=== PATIENT | female | born 1985 | race Caucasian/White ===

== ENCOUNTER 2019-04-14 07:46 | Observation (INO) | payer OTHER, SELFPAY ==
[2019-04-14] VITALS (9 sets, daily range): BP systolic 90–128; BP diastolic 50–85; PULSE 72–102; RESP 16–24; TEMP 36.7–36.9; O2SAT 97–100; BMI 19.8; BMI 19.4
--- NOTE | 2019-04-14 | PATH_ITS ---
[facility] Accession Number: [id number] . 01 Material submitted: . product of conception - PRODUCTS OF CONCEPTION . 01 Clinical history: . CRAMPING, BLEEDING OB PATIENT . 02 Diagnosis: Products of Conception: Products of conception identified. MRV/04/18/2019 . 02 Electronically signed: . Vonnie Cortes MD, Pathologist NPI- [id number] . 01 Gross description: . PRODUCTS OF CONCEPTION: Received in formalin are multiple fragments of hemorrhagic spongy tissue measuring 6.0 x 4.0 x 2.0 cm in aggregate. parts are not identified. Fishing Hand sections are submitted in 4 cassettes. /DM /DM . 02 Pathologist provided ICD-10: O02.1 . 02 CPT . 109008 Performed at: 01 [facility] [address] [id number] MD Abebe Macias MD Phone: [phone] Performed at: 02 [facility] [place] [address] [place], [place] [id number] MD Jolanta Valdez MD Phone: [phone]
--- NOTE | 2019-04-14 08:04 | ED_ITS ---
HPI - General Chief complaint: OB/Uterine Contractions Stated complaint: cramping, bleeding ob patient Time Seen by Provider: 04/14/19 07:54 Source: patient and family () Mode of arrival: ambulatory Limitations: no limitations History of Present Illness HPI Narrative: This is a 33-year-old female comes to the emergency department with complaint of miscarriage. Patient states that she had ultrasound last Thursday which showed she should be 7 weeks, she knew by dates she should be at 10-11 weeks. She was diagnosed with a miscarriage. She is actually set up for a D and C today with Dr. Booker. Patient not notice she started to have more cramping overnight and today is the bathroom if she passed quite a bit of blood some large clots and what she described as a ?contained jellyfish.? Patient states that she still pretty uncomfortable with some pelvic cramping although it is a little bit better after passing the blood and clots. Patient believes she is Rh positive. She has had 2 pregnancies total, prior was to term with no complications other than she was induced. She lives on [facility] and they do not have ultrasound capabilities today so she was referred to Ob here who is going to consult and treat her today at an appointment at 10:30 a.m. patient denies any other medical issues, she has had NEC L repair. She denies any tobacco, occasional alcohol none since she found she was . No illicit. She takes a daily no other medications. Hx Last Menstrual Period: 11 weeks Related Data Home Medications Medication Instructions Recorded Confirmed PNV cmb#95-ferrous fumarate-FA 1 tab PO DAILY 04/14/19 04/14/19 [] ibuprofen 800 mg PO Q8H PRN 04/14/19 04/14/19 Previous Rx's Medication Instructions Recorded oxycodone-acetaminophen [Percocet] 1 tab PO Q4-6H PRN #20 tab 04/14/19 Allergies Allergy/AdvReac Type Severity Reaction Status Date / Time No Known Drug Allergies Allergy Verified 04/14/19 10:56 Review of Systems Review of Systems ROS Unobtainable: All systems reviewed & are unremarkable except as noted in HPI and below Constitutional Reports fever(s) (low grade for a couple weeks.) Cardiovascular Denies chest pain and Denies dyspnea Respiratory Denies dyspnea Gastrointestinal Gastrointestinal: Denies diarrhea, Denies nausea and Denies vomiting Genitourinary Reports as per HPI, Reports abnormal vaginal bleeding, Denies hematuria, Denies urinary frequency, Denies dysuria, Reports pelvic pain, Denies flank pain, Denies urinary urgency and Denies vaginal discharge PMFSH - Past Medical History Medical history: Reports no medical history Surgical history: Reports other (ACL repair) Hx Last Menstrual Period: 11 weeks Exam Narrative Exam Narrative: GENERAL: Alert and oriented x three, well-nourished, well- appearing female in mild distress. Patient is more comfortable standing. HEENT: Head normocephalic, atraumatic, EOMI, pupils reactive, face symmetric, moist mucous membranes NECK: Supple, full range of motion CARDIOVASCULAR: Regular rate and rhythm without murmurs, rubs or gallops. RESPIRATORY: Breath sounds equal bilaterally, no wheezes rales or rhonchi. ABDOMEN: Soft, nontender. Normoactive bowel sounds all 4 quadrants. No guarding or rebound, rigidity, no mass : No CVA tenderness EXTREMITIES: Normal range of motion, no clubbing or edema. Neurovascularly intact NEUROLOGICAL: Cranial nerves II through XII grossly intact. Moving all extremities SKIN: Warm, dry, no petechiae, no rashes or lesions. Initial Vital Signs Initial Vital Signs: Vital Signs Temperature 98.5 F 04/14/19 08:08 Pulse Rate 102 H 04/14/19 08:08 Respiratory Rate 24 04/14/19 08:08 Blood Pressure 128/85 04/14/19 08:08 Pulse Oximetry 100 04/14/19 08:08 Course Orders Ordered: Discontinued Medications Ketorolac Tromethamine (Toradol) 30 mg IV NOW ONE Stop: 04/14/19 08:04 Last Admin: 04/14/19 08:30 Dose: 30 mg MDM - OB/Uterine Contractions Lab Data Attestation: I reviewed the patient's lab results. Result diagrams: 04/14/19 08:26 Lab Results 04/14/19 04/14/19 Range/Units 08:26 08:26 WBC 10.1 (4.5-11.0) X10^3/uL RBC 4.31 (4.0-5.2) X10^6/uL Hgb 13.6 (12.0-16.0) g/dL Hct 39.6 (36-46) % MCV 91.9 (80-100) fL MCH 31.5 (26-34) PG MCHC 34.3 (30-36) % RDW 13.4 (11.6-14.8) % Plt Count 279 (150-400) X10^3/uL Neut % (Auto) 77.5 H (50-75) % Lymph % (Auto) 13.4 L (25-40) % Sargent % (Auto) 7.5 (3-14) % Eos % (Auto) 1.4 L (2-4) % Baso % (Auto) 0.2 (0-2) % Neut # (Auto) 7800 H (6756-4535) /uL Lymph # (Auto) 1300 (3194-9078) /uL Sargent # (Auto) 700 (0-900) /uL Eos # (Auto) 100 (0-450) /uL Baso # (Auto) 0 (0-100) /uL Blood Type A Positive Imaging Data Pelvic ultrasound: Radiologist's impression: [place] [address] Ultrasound Report Signed Patient: Radha Terrazas OMR#: [id number] : 1985Acct:[id number] Age/Sex: FDate of Service: 04/14/19 Loc: [id number] Accession Number: [id number] Procedure: US OB <= 14 weeks fetus Ordering Provider: Nelly Lipscomb D.O. PROCEDURE: US OB <= 14 WEEKS FETUS INDICATIONS: CONCERN FOR MISCARRIAGE/RETAINED PRODUCTS OUTSIDE/PRIOR DATING DATA: Last menstrual period (LMP): 01/27/19. LMP-based estimated date of delivery (ANDREAS): 11/03/19. First dating scan (date and location): Not applicable. Estimated date of delivery (ANDREAS) from first dating scan: Not applicable. TECHNIQUE: Real-time scanning was performed of the fetus and maternal pelvic organs, with image documentation. Endovaginal scanning was also performed to better visualize the fetus and maternal ovaries. COMPARISON: None. FINDINGS: The patient reported that a prior ultrasound one week ago showed a 7 week gestational age fetus with no cardiac activity observed at time of scanning. No gestational sac or yolk sac was observed nor was any structures seen. At this time the endometrial canal and cervix appear occupied by heterogeneous material that is clearly not evidence of a living intrauterine gestation. The endometrial space measures up to 3.9 cm in transverse dimension and the material within the cervical canal measures up to 1.7 cm. Focal areas of blood flow consistent with retained products of conception are seen within this material, consistent with incomplete spontaneous . Ovaries appear normal, and there is a small amount of complex fluid at the left adnexa adjacent to the ovary, in this patient with probable reflux of hemorrhage from the endometrial space peripherally into that area. Embryo: Not seen Measurement variability in dating: +/- 4 weeks by LMP, +/- 7 days by mean sac diameter (use before 6 weeks gestation if crown-rump length not able to be measured), +/- 5 days by crown-rump length (up to 8 weeks 6 days gestation), +/- 7 days by crown-rump length (up to 13 weeks 6 days gestation). Maternal organs: Ovaries normal in appearance except for adjacent hemorrhagic free fluid in the peritoneal space adjacent to the left ovary.. Limited images through the kidneys demonstrate no hydronephrosis. IMPRESSION: Retained products of conception appear present within the endometrial space, with visualized internal blood flow. Active bleeding at time of scanning was observed. There is presumed reflux of hemorrhage into the adnexal area of the left ovary, which appears to have migrated through the fallopian tubes into that area. No adjacent area of suspected ectopic is found on the left. An identifiable fetus is not found. Dr. Booker of the [facility] staff was notified of these findings. Dictated by: Aydin Diaz M.D. on 04/14/2019 at 10:21 Approved by: Aydin Diaz M.D. on 04/14/2019 at 10:26 MDM Narrative Medical decision making narrative: Patient has some retained products of conception, her Rh is positive so she does not need RhoGAM. Hemoglobin is stable and she is feeling a bit more comfortable after Toradol Dr. Booker came to the department to see her she had an appointment at 10:34 a.m. D and C and plans to take her to OR for the same today. Patient was consented in the department by Dr. Booker. Discharge Plan Departure Patient Disposition: Admitted as Observation Clinical Impression: Hemorrhage due to retained products of conception Discharge Date/Time: 04/14/19 10:46 Interventions: ED Discharge Assessment Last Done: 04/14/19 10:41 Admit Date/Time: 04/14/19 10:22 Admit Provider: Roberta Booker
--- NOTE | 2019-04-14 08:09 | DI.US.S_ITS ---
PROCEDURE: US OB <= 14 WEEKS FETUS INDICATIONS: CONCERN FOR MISCARRIAGE/RETAINED PRODUCTS OUTSIDE/PRIOR DATING DATA: Last menstrual period (LMP): 01/27/19. LMP-based estimated date of delivery (ANDREAS): 11/03/19. First dating scan (date and location): Not applicable. Estimated date of delivery (ANDREAS) from first dating scan: Not applicable. TECHNIQUE: Real-time scanning was performed of the fetus and maternal pelvic organs, with image documentation. Endovaginal scanning was also performed to better visualize the fetus and maternal ovaries. COMPARISON: None. FINDINGS: The patient reported that a prior ultrasound one week ago showed a 7 week gestational age fetus with no cardiac activity observed at time of scanning. No gestational sac or yolk sac was observed nor was any structures seen. At this time the endometrial canal and cervix appear occupied by heterogeneous material that is clearly not evidence of a living intrauterine gestation. The endometrial space measures up to 3.9 cm in transverse dimension and the material within the cervical canal measures up to 1.7 cm. Focal areas of blood flow consistent with retained products of conception are seen within this material, consistent with incomplete spontaneous . Ovaries appear normal, and there is a small amount of complex fluid at the left adnexa adjacent to the ovary, in this patient with probable reflux of hemorrhage from the endometrial space peripherally into that area. Embryo: Not seen Measurement variability in dating: +/- 4 weeks by LMP, +/- 7 days by mean sac diameter (use before 6 weeks gestation if crown-rump length not able to be measured), +/- 5 days by crown-rump length (up to 8 weeks 6 days gestation), +/- 7 days by crown-rump length (up to 13 weeks 6 days gestation). Maternal organs: Ovaries normal in appearance except for adjacent hemorrhagic free fluid in the peritoneal space adjacent to the left ovary.. Limited images through the kidneys demonstrate no hydronephrosis. IMPRESSION: Retained products of conception appear present within the endometrial space, with visualized internal blood flow. Active bleeding at time of scanning was observed. There is presumed reflux of hemorrhage into the adnexal area of the left ovary, which appears to have migrated through the fallopian tubes into that area. No adjacent area of suspected ectopic is found on the left. An identifiable fetus is not found. Dr. Booker of the [facility] staff was notified of these findings. Dictated by: Aydin Diaz M.D. on 04/14/2019 at 10:21 Approved by: Aydin Diaz M.D. on 04/14/2019 at 10:26
[2019-04-14] MEDS: KETOROLAC 60 MG/2 ML VIAL 30 MG IV (08:30)
[2019-04-14 08:31] LABS: Add Manual Diff / Slide Review NO; Basophils Absolute Auto 0 /uL (0-100); Basophils Percent Auto 0.2 % (0-2); Eosinophils Absolute Auto 100 /uL (0-450); Eosinophils Percent Auto 1.4 % (2-4); Hematocrit 39.6 % (36-46); Hemoglobin 13.6 g/dL (12.0-16.0); Lymphocytes Absolute Auto 1300 /uL (1100-4500); Lymphocytes Percent Auto 13.4 % (25-40); Mean Corpuscular HGB Conc 34.3 % (30-36); Mean Corpuscular Hemoglobin 31.5 PG (26-34); Mean Corpuscular Volume 91.9 fL (80-100); Monocytes Absolute Auto 700 /uL (0-900); Monocytes Percent Auto 7.5 % (3-14); Neutrophils Absolute Auto 7800 /uL (1500-7000); Neutrophils Percent Auto 77.5 % (50-75); Platelet Count 279 X10^3/uL (150-400); Red Blood Cell Count 4.31 X10^6/uL (4.0-5.2); Red Cell Distribution Width 13.4 % (11.6-14.8); White Blood Cell Count 10.1 X10^3/uL (4.5-11.0)
[2019-04-14] MEDS: fentaNYL 100 MCG/2 ML INJ IV (11:14)
[2019-04-14] MEDS: LACTATED RINGERS 1,000 ML 42 ML IV (11:15)
[2019-04-14] MEDS: fentaNYL 100 MCG/2 ML INJ 50 MCG IV (11:24)
[2019-04-14] MEDS: CEFAZOLIN 2 GM/100 ML FROZ.PIGGY IV (11:45)
--- NOTE | 2019-04-14 11:48 | SUR.PREOP ---
pt taken into the OR at this time. Pt remained stable and alert after IV fentanyl given in pre op area. VSS and at bedside during pre op.
--- NOTE | 2019-04-14 11:55 | P.HP_ITS ---
History of Present Illness Date Patient Seen: 04/14/19 Time Patient Seen: 11:53 Chief complaint: cramping, bleeding ob patient Narrative: Patient is a 33-year-old 2 para 1 at 10 weeks gestation who has a missed at 7-8 weeks. She had suction D&C scheduled for today. On her way over on the [place] she started bleeding and cramping. She passed the fetus once she arrived at the hospital. An ultrasound showed that she still had retained products of conception. Patient History Social History Smoking Status: Never smoker Family & Social History Safety & Behavioral: Feels Safe in Current Yes Environment Been Physically Hurt or No Threatened By a Person Tobacco & Substance use: Smoking Status Never smoker alcohol intake frequency 0-2 drinks per day Substance Use Type does not use Meds Home Medications Medication Instructions Recorded Confirmed Type PNV cmb#95-ferrous fumarate-FA 1 tab PO DAILY 04/14/19 04/14/19 History [] ibuprofen 800 mg PO Q8H PRN 04/14/19 04/14/19 History Allergies Allergy/AdvReac Type Severity Reaction Status Date / Time No Known Drug Allergies Allergy Verified 04/14/19 10:56 Exam Vital Signs (past 8 hours): - 04/14/19 08:08 04/14/19 09:14 04/14/19 10:33 Temperature 98.5 F Pulse Rate 102 H 91 H 88 Respiratory Rate 24 18 18 Blood Pressure 128/85 Blood Pressure [Left Arm] 110/68 105/60 Pulse Oximetry 100 100 99 04/14/19 10:41 Temperature Pulse Rate 85 Respiratory Rate 20 Blood Pressure 105/60 Blood Pressure [Left Arm] Pulse Oximetry 99 Oxygen Delivery Method Room Air Narrative Exam Narrative: HEENT: No thyromegaly, no anterior cervical or supraclavicular lymphadenopathy. Lungs:Clear to auscultation bilaterally, no wheezes. Cardiovascular: Regular rate and rhythm, no murmurs, rubs, or gallops. Abdomen: No scars. No hepatosplenomegaly. No masses palpable. External genitalia: Normal Vagina: Normal Cervix: Normal Bimanual exam: 8 Week size uterus. Mobile. Rectal: No masses. Objective Labs Result Diagrams: 04/14/19 08:26 Labs: Laboratory Results - last 24 hr 04/14/19 04/14/19 08:26 08:26 WBC 10.1 RBC 4.31 Hgb 13.6 Hct 39.6 MCV 91.9 MCH 31.5 MCHC 34.3 RDW 13.4 Plt Count 279 Neut % (Auto) 77.5 H Lymph % (Auto) 13.4 L Drew % (Auto) 7.5 Eos % (Auto) 1.4 L Baso % (Auto) 0.2 Neut # (Auto) 7800 H Lymph # (Auto) 1300 Drew # (Auto) 700 Eos # (Auto) 100 Baso # (Auto) 0 Blood Type A Positive Assessment & Plan Assessment & Plan narrative: Assessment: 33-year-old 2 para 1 with retained products of conception Plan: Suction D&C The risks, benefits, and alternatives to the procedure were explained to the patient. The risks including bleeding, infection, and uterine perforation. She understands these risks and agrees to proceed. A full par Q was held and consent form was signed. Time Spent With Patient Time with patient: 15-24 minutes
--- NOTE | 2019-04-14 11:55 | PM.PREOP ---
Pre-operative Note Interval Note History & Physical reviewed/Exam performed by Physician: Yes Changes to H&P: No
--- NOTE | 2019-04-14 12:23 | SUR.OPER ---
Lithotomy on padded OR bed, head on pillow, arms secured on padded arm boards at <90 degrees abduction. Legs secured in padded yellow fins stirrups.
[2019-04-14] MEDS: OXYCODONE/ACETAMINOPHEN 5/325 TABLET 1 TAB PO (13:05)
--- NOTE | 2019-04-21 12:28 | P.OP_ITS ---
Operative Date/Time/Diagnoses Date of procedure: 04/14/19 Time of procedure: 12:45 Pre-op diagnosis: Retained products of conception Post-op diagnosis: same Procedure & Clinicians Procedure: Procedures Operation Date: 04/14/19 11:30 Actual Procedures Side Surgeon rigo Hernandez D&C Roberta Booker MD Indications: Retained products of conception Brisk vaginal bleeding Surgeon: Roberta Booker Anesthesia Type: General (LMA) Operative Notes Findings: 8 week size retroverted uterus Large amount of products of conception Closure Type: not applicable Specimen(s): uterine contents Applied: catheter (In and out) Estimated blood loss (mL): 150 Blood products transfused: none Procedure in detail: After informed consent was obtained, the patient was taken to the operating room where she was placed in the dorsal supine position. After adequate LMA general anesthesia was achieved, she was placed in the dorsal lithotomy position, and prepped and draped in the usual sterile fashion. A time-out was performed. A bivalve speculum was placed into the vagina and the anterior lip of the cervix grasped with a single-tooth tenaculum. There was a large amount of clot and tissue coming from the cervical os. The cervical os was dilated and the uterus was found to be retroverted. The # 8 curved plastic curette passed easily into the endometrial cavity. Several passes with suction revealed a large amount of products of conception. The suction curette was removed. Sharp curettage was performed yielding moderate amount of tissue. Several more passes with suction revealed blood only. The instruments were apple lloyd from the uterus. The single-tooth tenaculum was removed from the anterior lip of the cervix. The bivalve speculum was removed from the vagina. Sponge, lap, and instrument counts were correct x2. Patient tolerated the procedure well, was taken to PACU in stable condition. Complications: none Post-operative Condition: stable Disposition: PACU Plan for aftercare: Home after recovery
== END 2019-04-14 13:25 | disposition home or self-care (01) ==
LOC: ED 10:22 → AC 10:23
PROVIDERS: Admitting Provider Obstetrics & Gynecology; Emergency Provider Emergency Medicine; Visit Provider Obstetrics & Gynecology
PROC: (CPT 58120; principal; 2019-04-14 11:30)
DX: O02.1 Missed abortion (principal); Z3A.01 Less than 8 weeks gestation of pregnancy
CPT/HCPCS: 59820 ×2; 36591; 76801; 76817; 85025; 86900; 86901; 99282; G0378; J0690; J1100; J1885; J2405; J2704; J3010

== ENCOUNTER → 2019-06-24 13:11 | Outpatient (CLI) | payer OTHER, SELFPAY ==
--- NOTE | 2019-06-24 13:12 | DI.US.S_ITS ---
PROCEDURE: US PELVIC COMPLETE INDICATIONS: PELVIC PAIN, POST DNC TECHNIQUE: Real-time scanning was performed of the pelvic organs, with image documentation. Additional endovaginal scanning was necessary due to incomplete visualization of the adnexal and endometrial structures by transabdominal scanning. COMPARISON: OB ultrasound 04/14/2019. FINDINGS: Transabdominal scanning: Limited scanning through the kidneys shows no hydronephrosis. No pathologic free abdominal or pelvic fluid. Endovaginal scanning: Uterus: Uterus is normal in size at 7.9 x 4.5 x 3.9 cm. The endometrium measures 6.0 mm in combined thickness. Ovaries: Ovaries normal bilaterally measuring 3.7 x 2.1 x 2.5 cm on the right and 3.1 x 2.1 x 1.8 cm on the left. IMPRESSION: No source for pelvic pain identified. Dictated by: Carlos ARGUELLES Interpreted: Edy Lau MD on 06/24/2019 at 15:32 Approved by: Edy Lau M.D. on 06/24/2019 at 17:16
== END ==
PROVIDERS: Visit Provider Specialist
DX: R10.2 Pelvic and perineal pain (principal)
CPT/HCPCS: 76830; 76856

== ENCOUNTER → 2019-09-22 12:01 | Outpatient (CLI) | payer OTHER, SELFPAY ==
[2019-09-22 12:42] LABS: Add Manual Diff / Slide Review NO; Basophils Absolute Auto 0 /uL (0-100); Basophils Percent Auto 0.4 % (0-2); Eosinophils Absolute Auto 100 /uL (0-450); Eosinophils Percent Auto 1.2 % (2-4); Hematocrit 38.3 % (36-46); Lymphocytes Absolute Auto 1700 /uL (1100-4500); Lymphocytes Percent Auto 26.3 % (25-40); Mean Corpuscular HGB Conc 33.8 % (30-36); Mean Corpuscular Hemoglobin 31.1 PG (26-34); Mean Corpuscular Volume 91.9 fL (80-100); Monocytes Absolute Auto 500 /uL (0-900); Monocytes Percent Auto 8.4 % (3-14); Neutrophils Absolute Auto 4100 /uL (1500-7000); Neutrophils Percent Auto 63.7 % (50-75); Platelet Count 292 X10^3/uL (150-400); Red Blood Cell Count 4.16 X10^6/uL (4.0-5.2); Red Cell Distribution Width 13.2 % (11.6-14.8); White Blood Cell Count 6.5 X10^3/uL (4.5-11.0)
[2019-09-22 13:40] LABS: Appearance Urine UA CLEAR; Bilirubin Urine UA NEGATIVE (NEGATIVE); Color Urine UA YELLOW; Glucose Urine UA NEGATIVE (Negative); Ketones Urine UA NEGATIVE (NEGATIVE); Leukocyte Esterase Urine UA NEGATIVE (NEGATIVE); Nitrite Urine UA NEGATIVE (Negative); Occult Blood Urine UA NEGATIVE (Negative); Protein Urine UA NEGATIVE (Negative); Specific Gravity Urine UA <=1.005 (1.000-1.035); Urobilinogen Urine UA 0.2 E.U./dL (0.2)
[2019-09-22 16:34] LABS: Hepatitis B Surface Antigen NEGATIVE s/c (NEGATIVE); Rubella Antibody IgG 14.4 IU/mL (>15)
[2019-09-22 16:48] LABS: HIV 1 & 2 Ab/Ag 4th Gen Combo NEGATIVE (NEGATIVE); Hep C Virus Ab w/Reflex Quant NEGATIVE s/c (NEGATIVE)
[2019-09-23 21:02] LABS: RPR Screen Nonreactive (Nonreactive)
== END ==
PROVIDERS: PCP Family Medicine; Visit Provider Specialist
DX: Z34.81 Encounter for supervision of other normal pregnancy, first trimester (principal)
CPT/HCPCS: 36415; 80055; 81003; 86787; 86803; 86850; 86900; 86901; 87086; 87389

== ENCOUNTER → 2019-10-13 15:04 | Outpatient (ROUT) | payer OTHER, SELFPAY ==
[2019-10-13 16:40] LABS: Urine N gonorrhoeae NOT DETECTED
[2019-10-13 16:46] LABS: Urine Chlamydia NOT DETECTED
== END ==
PROVIDERS: PCP Family Medicine; Visit Provider Specialist
DX: Z34.81 Encounter for supervision of other normal pregnancy, first trimester (principal); Z3A.09 9 weeks gestation of pregnancy
CPT/HCPCS: 87491; 87591

== ENCOUNTER → 2019-10-21 09:50 | Outpatient (CLI) | payer OTHER, SELFPAY ==
[2019-10-21 10:12] LABS: Specimen Label NATERA KIT
[2019-10-21 11:01] LABS: Hemoglobin A1C% w Est Avg Glu 4.8 % (4.0-6.0)
[2019-10-21 11:33] LABS: Glucose 81 mg/dL (70-100)
== END ==
PROVIDERS: PCP Family Medicine; Referring Provider Specialist; Visit Provider Specialist
DX: Z34.81 Encounter for supervision of other normal pregnancy, first trimester (principal)
CPT/HCPCS: 36415; 82947; 83036

== ENCOUNTER → 2019-12-19 10:29 | Outpatient (CLI) | payer OTHER, SELFPAY ==
--- NOTE | 2019-12-19 10:35 | DI.US.S_ITS ---
PROCEDURE: OB >= 14 WEEKS FETUS INDICATIONS: ANATOMY SCAN OUTSIDE/PRIOR DATING DATA: Last menstrual period (LMP): Unknown. LMP-based estimated date of delivery (ANDREAS): Unknown. First dating scan (date and location): 10/13/19. Estimated date of delivery (ANDREAS) from first dating scan: 05/17/20. TECHNIQUE: Real-time scanning was performed of the fetus, with image documentation and biometric measurements. COMPARISON: [facility], OB <= 14 WEEKS FETUS, 10/13/2019, 13:52. [facility], OB <= 14 WEEKS FETUS, 09/22/2019, 11:31. [facility], PELVIC COMPLETE, 06/24/2019, 13:26. FINDINGS: General: A single living intrauterine gestation is present. Presentation: Transverse. Placenta: Placental position is posterior, low lying without gross previa Amniotic fluid index: 13.2 cm, normal range is 5-24 cm. heart rate: 147 beats per minute. Maternal cervical canal: 4.9 cm long. Normal lower limit is 2.5 cm. biometrics: Biparietal diameter: 4.1 cm 18 weeks 3 days Head circumference: 5.3 cm 18 weeks 2 days Abdominal circumference: 13.3 cm 18 weeks 6 days Femur length: 2.8 cm 18 weeks 3 days Estimated gestational age from initial scan: 18 weeks 4 days Composite gestational age from present scan: 18 weeks 3 days Estimated weight and percentile: 247 g 46 percentile Anatomic survey: Neuro: Ventricles are non-dilated at less than 10 mm. Cisterna magna is normal at 3-11 mm. Cerebellum is normal in size and morphology. Nuchal skin fold: Normal at less than 6 mm between 14-21 weeks gestational age. Face: Nose and lips, facial profile are not well seen. Spine: No evidence for spina bifida. Heart: 4-chambered heart and ventricular outflow tracts are suboptimally visualized. Diaphragm: Diaphragm is intact. Stomach: Left-sided stomach is present. Kidneys: No hydronephrosis. Normal is less than 5 mm in 2nd trimester, less than 7 mm in 3rd trimester. Cord: 3-vessel cord has orthotopic insertion. Bladder: Normal in size. Extremities: All 4 extremities identified. IMPRESSION: 1. Single live intrauterine with ultrasound gestational age of 18 weeks 3 days today corresponding to 18 weeks 4 days from initial ultrasound. Ultrasound EVD is unchanged at -. 2. No profile as well as heart and outflow tracts are suboptimally visualized. Recommend interval followup. Dictated by: Georgia Murray M.D. on 12/19/2019 at 16:21 Approved by: Georgia Murray M.D. on 12/19/2019 at 16:24
[2019-12-20 07:09] LABS: Alpha Fetoprotein 50.5 ng/mL (0.0-8.3)
[2019-12-29 15:17] LABS: AFP Value 50.1 ng/mL (.); Gest Age on Col Date 18.6 weeks (.); Gestational Age As provided (.); Insulin Dep Diabetes No (.); OSBR Risk 1IN 10000 (.); Test Results *Screen Negative* (.)
== END ==
PROVIDERS: PCP Family Medicine; Referring Provider Specialist; Visit Provider Specialist
DX: Z34.82 Encounter for supervision of other normal pregnancy, second trimester (principal); Z3A.18 18 weeks gestation of pregnancy
CPT/HCPCS: 36415; 76811; 82105

== ENCOUNTER → 2020-01-09 12:54 | Outpatient (CLI) | payer OTHER, SELFPAY ==
--- NOTE | 2020-01-09 12:56 | DI.US.S_ITS ---
PROCEDURE: US OB FOLLOW UP INDICATIONS: F/U PROFILE AND CARDIAC OUTFLOW TRACTS NOT PREVIOSLY SEEN OUTSIDE/PRIOR DATING DATA: Last menstrual period (LMP): Not available. LMP-based estimated date of delivery (ANDREAS): Not available. First dating scan (date and location): 10/13/19, by Dr. Jose. Estimated date of delivery (ANDREAS) from first dating scan: 12/16/19, by Dr. Jose. TECHNIQUE: Real-time scanning was performed of the fetus, with image documentation. Endovaginal scanning: Not needed. COMPARISON: None. FINDINGS: A single living intrauterine gestation is present. Presentation: Variable. Placenta: Placental position is posterior, without previa. Amniotic fluid index: 16.0 cm, normal range is 5-24 cm. heart rate: 139 beats per minute. Maternal cervical canal: 3.9 cm long. Normal lower limit is 2.5 cm. Estimated gestational age from initial scan: 21 weeks 4 days. IMPRESSION: Single living intrauterine gestation, appropriate interval growth appears to have occurred, placenta is not low-lying. facial profile and cardiac structures appear normal. Dictated by: Aydin Diaz M.D. on 01/09/2020 at 13:50 Approved by: Aydin Diaz M.D. on 01/09/2020 at 13:52
== END ==
PROVIDERS: PCP Family Medicine; Referring Provider Specialist; Visit Provider Specialist
DX: Z36.2 Encounter for other antenatal screening follow-up (principal); Z3A.21 21 weeks gestation of pregnancy
CPT/HCPCS: 76816

== ENCOUNTER → 2020-04-18 18:47 | Outpatient (CLI) | payer OTHER, SELFPAY ==
[2020-04-19 17:12] LABS: Strep Grp B PCR POS for Grp B Strep
== END ==
PROVIDERS: Family Provider Family Medicine; PCP Family Medicine; Visit Provider Specialist
DX: Z34.83 Encounter for supervision of other normal pregnancy, third trimester (principal); Z3A.35 35 weeks gestation of pregnancy
CPT/HCPCS: 87653

== ENCOUNTER 2020-05-12 19:17 | Inpatient (IN) | payer OTHER, SELFPAY ==
--- NOTE | 2020-05-12 19:53 | P.HPOB_ITS ---
OB HPI Date/Time Date of admission: 05/12/20 Date Patient Seen: 05/12/20 Time Patient Seen: 19:53 History of Present Condition Chief complaint: EVAL OF LABOR : 3 Para: 1 Estimated Date of Delivery: 05/17/20 Estimated Gestational Age (weeks): 39 Narrative: Radha Terrazas is a 34 year old female admitted for induction for distance from the hospital and gestational diabetes Indications Indication for induction OB: maternal distance History of Present care: good care, initiated at week # (9), number of visits (9) and pounds weight gain (16) Dating criteria: LMP confirmed by 1st trimester US Ultrasounds: normal mid trimester US Obstetrical complications: gestational diabetes (Diet-controlled) Medical complications: none Preadmission Labs Blood type: A (+) positive -: Antibody screen: negative, GBS status: positive, HBsAG: negative, HIV: negative and RPR/VDLR: negative -: Chlamydia screen: not detected and Gonorrhea screen: not detected -: Rubella: not immune and Varicella: immune HCAB: negative Cell-free DNA: Normal female Narrative: Patient just monitored her blood sugars throughout . She is on metformin Evaluation Evaluation Baseline heart rate: 135 Variability: Moderate (11-25) monitor accelerations: Present monitor decelerations: Absent Contraction Frequency (minutes): 0 Category of Tracing: Reactive Cervical dilation (cm): 0 Cervical effacement (%): 50 station: 0 PFSH Medical History (Updated 04/05/20 @ 10:13 by Angie Jose MD) Anxiety (Acute) Left breast lump (Acute ~2019) Migraines (Acute) UTI (urinary tract infection) (Acute) Surgical History (Updated 01/11/20 @ 14:41 by Nusrat Ontiveros) S/P anterior cruciate ligament surgery (Acute) S/P dilatation and curettage (Acute 04/14/19) [place] teeth extracted (Acute) Family History (System 01/11/20 @ 14:41 by Nusrat Ontiveros) Mother Asthma Father Hypertension Skin cancer screening Family/Other Thyroid condition Grandfather Hypertension H/O heart artery stent Grandmother Thyroid condition Grandfather Dementia Grandmother No problems noted. Family/Other Thyroid condition Social History (System 01/11/20 @ 14:41 by Nusrat M Maratea) marital status: household members: spouse and children education level: college occupational status: unemployed current occupational exposures/hazards: No special stacy needs: No Smoking Status: Never smoker second hand exposure: No substance use type: does not use Meds Home Medications and Allergies Home Medications Medication Instructions Recorded Confirmed Type pyridoxine (vitamin B6) 25 mg 25 mg PO DAILY 10/13/19 05/12/20 History tablet 1 tab PO DAILY 05/12/20 05/12/20 History Allergies Allergy/AdvReac Type Severity Reaction Status Date / Time No Known Drug Allergies Allergy Verified 05/12/20 22:59 Review of Systems Review of Systems Narrative: No headaches, scotomata, epigastric pain. Good movement. No rupture membranes. ROS: Yes All systems reviewed with the patient and are negative except as otherwise documented Exam Vital Signs (past 8 hours): BP 107/62, P 82, T97.8 Narrative Exam Narrative: HEENT exam within normal limits. Lungs are clear to auscultation percussion. Heart is regular rate and rhythm no S3-S4 or murmurs. Abdomen is gravid. Fetus is vertex. Extremities without edema and nontender. Objective Labs Result Diagrams: 05/12/20 23:45 Assessment and Plan Assessment and Plan Assessment and Plan narrative: 39 week with gestational diabetes on metformin for induction for distance from the hospital and gestational diabetes. Plan is Cytotec followed by Pitocin if necessary. Patient will have an epidural for pain control.
[2020-05-12] MEDS: miSOPROStoL 25 MCG TABLET VAG ×2 (20:36→23:45)
[2020-05-12 20:37] LABS: COVID19 -Nasal RAPID Negative (Negative)
[2020-05-12] MEDS: ZOLPIDEM 5 MG TABLET PO (23:45)
[2020-05-12 23:52] VITALS: BP 107/63
[2020-05-12 23:57] LABS: Add Manual Diff / Slide Review NO; Basophils Absolute Auto 0 /uL (0-100); Basophils Percent Auto 0.5 % (0-2); Eosinophils Absolute Auto 100 /uL (0-450); Eosinophils Percent Auto 0.7 % (2-4); Hematocrit 35.8 % (36-46); Hemoglobin 12.2 g/dL (12.0-16.0); Lymphocytes Absolute Auto 2000 /uL (1100-4500); Mean Corpuscular HGB Conc 33.9 % (30-36); Mean Corpuscular Hemoglobin 31.9 PG (26-34); Monocytes Absolute Auto 700 /uL (0-900); Monocytes Percent Auto 9.5 % (3-14); Neutrophils Absolute Auto 4400 /uL (1500-7000); Neutrophils Percent Auto 61.3 % (50-75); Platelet Count 216 X10^3/uL (150-400); Red Blood Cell Count 3.81 X10^6/uL (4.0-5.2); Red Cell Distribution Width 13.2 % (11.6-14.8); White Blood Cell Count 7.2 X10^3/uL (4.5-11.0)
[2020-05-13] MEDS: LACTATED RINGERS 1,000 ML 100 ML IV (08:10)
[2020-05-13] MEDS: OXYTOCIN PREMIX 30 UNIT/500 ML PLAST..BAG IV (09:23)
--- NOTE | 2020-05-13 12:03 | PM.OBPNLAB ---
Date/Time Date Patient Seen: 05/13/20 Time Patient Seen: 12:03 Pain Control Pain control: epidural (being placed now) Pelvic Exam Dilation (cm): 3 Effacement (%): 75 station: 0 Comments: AROMed for clear fluid Contractions Contractions on admission: regular Monitor mode: External Pitocin rate (mU/min): 7 Contraction frequency (min): 2 Contraction duration (min): 1 Contraction pattern: Regular Contraction intensity: Strong/Firm Status status: Category l Heart Rate Baseline: 120 Monitor Accelerations: Present Monitor Decelerations: Absent Monitor Variability: Moderate Assessment and Plan Assessment: induction ongoing Plan: continuous present management
[2020-05-13] MEDS: PENICILLIN G POTASSIUM 5,000,000 UNIT in DEXTROSE 5% IN WATER 250 ML IV (12:54)
[2020-05-13] MEDS: ONDANSETRON 4 MG/2 ML INJ IV (13:03)
--- NOTE | 2020-05-13 14:58 | PM.OBPRVD ---
Events: Gestational Diabetes Labor & Delivery Delivery date: 05/13/20 Cervical ripening method: per misoprostal protocol Induction method: per pitocin protocol Delivery monitor: external FHT and external uterine Route of delivery: L&D Laceration Description: None Estimated blood loss (mL): 400 Anesthesia type: Epidural Baby 1: gender: Female Presentation: vertex position: Right Occiput Anterior Placenta delivery description: Spontaneous cord vessel description: 3 Vessels score (1 min): 8 score (5 min): 9 Plan for aftercare: Routine care
[2020-05-13] MEDS: ACETAMINOPHEN 325 MG TABLET 650 MG PO (18:08)
[2020-05-14] MEDS: ACETAMINOPHEN 325 MG TABLET 650 MG PO ×2 (00:16→06:42)
[2020-05-14 06:29] LABS: Add Manual Diff / Slide Review NO; Basophils Absolute Auto 0 /uL (0-100); Basophils Percent Auto 0.3 % (0-2); Eosinophils Absolute Auto 100 /uL (0-450); Eosinophils Percent Auto 1.1 % (2-4); Hemoglobin 9.9 g/dL (12.0-16.0); Lymphocytes Absolute Auto 2300 /uL (1100-4500); Mean Corpuscular HGB Conc 34.2 % (30-36); Mean Corpuscular Hemoglobin 32.1 PG (26-34); Mean Corpuscular Volume 93.9 fL (80-100); Monocytes Absolute Auto 1000 /uL (0-900); Monocytes Percent Auto 10.8 % (3-14); Neutrophils Absolute Auto 5800 /uL (1500-7000); Neutrophils Percent Auto 62.8 % (50-75); Platelet Count 178 X10^3/uL (150-400); Red Blood Cell Count 3.09 X10^6/uL (4.0-5.2); Red Cell Distribution Width 13.5 % (11.6-14.8); White Blood Cell Count 9.2 X10^3/uL (4.5-11.0)
--- NOTE | 2020-05-14 08:11 | P.DS_ITS ---
Discharge Providers Provider Date of admission: 05/12/20 19:17 Discharge Date: 05/14/20 Primary care physician: Nelly Power MD Consults: 05/12/20 19:38 Consult to Anesthesiology Urgent Comment: Consulting Provider: Anesthesiologist Reason for consultation: Epidural Has provider been notified: No 05/14/20 14:56 Consult to Spray Gun Repairer Routine Comment: Discharge provider: Angie Jose MD Summary Hospital Course Date Patient Seen: 05/14/20 Time Patient Seen: 08:11 Procedures: Prostin followed by Pitocin induction for distance from the hospital and gestational diabetes. Epidural catheter, spontaneous vaginal delay Hospital Course: Patient was admitted for induction. She received an epidural catheter for pain control. She had a spontaneous vaginal delivery of a viable female weighing 6 lb 11 oz. Patient is without difficulty. She is urinating and ambulating well. No headaches, scotomata, epigastric pain. Peripartum Data Delivery Method: Natural Vaginal Laceration Description: None Procedures: Prostin followed by Pitocin induction, epidural catheter, spontaneous vaginal delivery complications: none [place] 1: Gender: Female Disposition of : home Discharge Diagnosis (1) Vaginal delivery: Status: Acute Status at Discharge Cognitive/behavioral status at discharge: oriented Functional status at discharge: independent ambulation Overall status at discharge: patient is progressing back to baseline Time Spent with Patient Time attestation: Total time spent providing and/or coordinating discharge services: Time spent: Less than 30 minutes Objective Labs Result Diagrams: 05/14/20 06:12 Labs: Laboratory Results - last 24 hr 05/14/20 06:12 WBC 9.2 RBC 3.09 L Hgb 9.9 L Hct 29.0 L MCV 93.9 MCH 32.1 MCHC 34.2 RDW 13.5 Plt Count 178 Neut % (Auto) 62.8 Lymph % (Auto) 25.0 [place] % (Auto) 10.8 Eos % (Auto) 1.1 L Baso % (Auto) 0.3 Neut # (Auto) 5800 Lymph # (Auto) 2300 [place] # (Auto) 1000 H Eos # (Auto) 100 Baso # (Auto) 0 Exam Vital Signs (past 8 hours): Blood pressure 112/65, pulse of 82, temperature 97.8? Narrative Exam Narrative: Abdomen is soft, nontender. Uterus is firm, at U, nontender. Perineum is intact. Mild lochia. Extremities without edema and nontender. Patient is Rh positive. She will be offered the rubella vaccine prior to discharge. She will be offered the Tdap prior to discharge. She had refused the Tdap prior. Discharge Plan Discharge Plan Patient Disposition: Home Discharge orders & Medications Prescriptions: New ibuprofen 600 mg Tablet 600 mg PO Q6HR PRN (Reason: Pain, Mild (1-3)) Qty: 20 RF: 0 Continued pyridoxine (vitamin B6) 25 mg tablet 25 mg PO DAILY RF: 0 1 tab tablet 1 tab PO DAILY RF: 0 Follow up/Referrals: Nelly Power MD [Primary Care Provider] - Angie Jose MD [Physician] - 06/20/20 (Follow up on [place] w/ Dr. Jose on @ 12:15pm) Diet/Activity/Treatments Diet: Regular Activity: Nothing in vagina for 6 weeks Skin/Wound/Dressing Care Report to your healthcare provider any signs of infection, such as:: chills, fever Visit Report/Discharge Packet Stand Alone Forms: Discharge: Care Discharge Data Primary Care Provider: Nelly Power Attending Provider: Angie Jose Admit Date/Time: 05/12/20 19:17
[2020-05-14 11:42] VITALS: BP 112/65; PULSE 82; RESP 15; TEMP 36.3
== END 2020-05-14 12:35 | disposition home or self-care (01) | DRG 807 ==
PROVIDERS: Admitting Provider Specialist; Family Provider Family Medicine; PCP Family Medicine; Referring Provider Specialist; Visit Provider Specialist
DX: O24.420 Gestational diabetes mellitus in childbirth, diet controlled (principal); Z37.0 Single live birth; Z3A.39 39 weeks gestation of pregnancy; O99.824 Streptococcus B carrier state complicating childbirth; Z11.59 Encounter for screening for other viral diseases
CPT/HCPCS: 01967; 36415; 59025; 59050; 59400; 85025; 86850; 86900; 86901; 87635; G0379; J2405; J2540; J2590

== ENCOUNTER → 2022-11-24 15:39 | Outpatient (CLI) | payer OTHER, SELFPAY ==
--- NOTE | 2022-11-24 15:41 | DI.US.S_ITS ---
PROCEDURE: US OB <= 14 WEEKS FETUS INDICATIONS: RIGHT PELVIC PAIN OUTSIDE/PRIOR DATING DATA: Last menstrual period (LMP): Unknown First dating scan (date and location): 11/24/2022. Estimated date of delivery (ANDREAS) from first dating scan: 07/07/2023. TECHNIQUE: Real-time scanning was performed of the fetus and maternal pelvic organs, with image documentation. Endovaginal scanning was also performed to better visualize the fetus and maternal ovaries. COMPARISON: None. FINDINGS: Heart rate is 173 beats per minute. [place]-rump length is 1.5 centimeters. Estimated ultrasound age is 7 weeks and 6 days. Right adnexal simple appearing cysts are present. Small amount of simple free fluid is also present. 1.6 x 0.7 x 0.5 centimeter perigestational hemorrhage is present. IMPRESSION: Living intrauterine at ultrasound age of 7 weeks and 6 days. Small perigestational bleed. We strive to produce accurate, complete, and clear reports of imaging services. To assist us in improving patient care, this report was composed using standard report templates and voice recognition software. Therefore, it may contain abnormal punctuation, insertions and/or omissions. Occasional wrong-word or sound-alike substitutions may occur. Though we review the report and make efforts to correct it, we do recommend that the report be read carefully in proper context to recognize any text inaccuracies. Dictated by: Eusebio Ware M.D. on 11/24/2022 at 16:14 Approved by: Eusebio Ware M.D. on 11/24/2022 at 16:16
== END ==
PROVIDERS: Family Provider Family Medicine; PCP Family Medicine; Referring Provider Obstetrics & Gynecology; Visit Provider Obstetrics & Gynecology
DX: O46.8X1 Other antepartum hemorrhage, first trimester; Z3A.01 Less than 8 weeks gestation of pregnancy
CPT/HCPCS: 76801; 76817; 93976

== ENCOUNTER 2022-12-17 06:53 | Day surgery (SDC) | payer OTHER, SELFPAY ==
[2022-12-17] VITALS (10 sets, daily range): BP systolic 74–119; BP diastolic 43–73; PULSE 71–101; RESP 12–20; TEMP 36.4–36.8; O2SAT 95–100; BMI 21.1
--- NOTE | 2022-12-17 | PATH_ITS ---
[facility] Accession Number: [id number] No. of containers..01 Tissue . 01 Material submitted: . endometrium - UTERINE CONTENTS . 01 Diagnosis: Uterine Contents: Products of conception identified. MRV 12/19/2022 1239 Local . 01 Electronically signed: . Vonnie Cortes MD, Pathologist NPI- [id number] . 01 Gross description: . The specimen is received in formalin labeled with the patient's name, , and uterine contents, and consists of multiple pugh variable spongy to membranous soft tissue fragments aggregating to 6.2 x 4.2 x 1.5 cm. No tissue is identified. Letterset Press Set Up Operator sections are submitted in cassettes A1-A2. ([id number]) /MRV 12/18/2022 1503 Local . 01 Pathologist provided ICD-10: O02.1 . 01 CPT . 162516 Specimen Comment: A courtesy copy of this report has been sent to [phone] Performed at: 01 [facility] [address] [place] [address], [place], [place] [id number] MD Abebe Macias MD Phone: [phone]
--- NOTE | 2022-12-17 05:41 | PM.GYNHP.1 ---
History of Present Illness History of Present Illness Reason for admission: missed Narrative: Radha Terrazas is a 37 year old female with a missed at 7+6 wks gestation here for a suction D&C [facility] Medical History (Updated 11/18/22 @ 11:09 by Ping Bernard, RN) Anxiety Bilateral breast cysts Gestational diabetes mellitus (GDM) affecting second Left breast lump (~2018) Migraines UTI (urinary tract infection) Vaginal delivery (~05/13/20) Surgical History (Updated 01/11/20 @ 14:41 by Nusrat Ontiveros) S/P anterior cruciate ligament surgery S/P dilatation and curettage (04/14/19) [place] teeth extracted Family History (Updated 11/18/22 @ 11:12 by Ping Bernard, HAZEL) Mother Asthma Father Hypertension Skin cancer screening Family/Other Thyroid condition Grandfather Hypertension H/O heart artery stent Grandmother Thyroid condition Grandfather Dementia Grandmother Dementia Family/Other Thyroid condition Son Anaphylaxis Social History (System 01/11/20 @ 14:41 by Nusrat Ontiveros) marital status: number of children: 2 household members: spouse and children lives independently: Yes caregiver/support person: Yes housing: house pets and animals: Yes (1 dog) education level: master's degree occupational status: unemployed current occupational exposures/hazards: No special stacy needs: No travel history: over 6 months ago seatbelt use: always helmet use: Yes water heater temp set < 120 deg: Yes working smoke detector in home: Yes fire extinguisher in home: Yes carbon monox detector in home: Yes firearms in home: Yes firearms unloaded and locked: Yes do you feel safe at home: Yes Smoking Status: Never smoker second hand exposure: No alcohol intake: former (very rarely when not ) substance use type: does not use during the past year weight has: remained stable well-balanced diet: daily or most days daily servings fruits/ve or more times/day caffeine: Yes (1 small cup coffee in AM) Type(s) of exercise: other (active, hiking) Meds Home Medications and Allergies Home Medications Medication Instructions Recorded Confirmed Type 1 tab PO DAILY 05/12/20 12/16/22 History docosahexaenoic acid 200 mg mg PO 11/18/22 12/16/22 History capsule ( DHA) Allergies Allergy/AdvReac Type Severity Reaction Status Date / Time No Known Drug Allergies Allergy Verified 12/16/22 14:26 Exam Narrative Exam Narrative: Generally: Somewhat teary, NAD Lungs: CTA bilat CV: RRR Abd: Soft, flat, nontender Bimanual exam: 8 wk size uterus Ext: No edema Assessment & Plan Assessment & Plan narrative: Assessment: 37 year old with a missed at 7 wks gestation Plan: Suction D&C The risks, benefits and alternatives to the procedure were explained to the patient. The risks including bleeding, infection, and uterine perforation. She understands these risks and agrees to proceed. A full PAR-Q was held and consent form was signed. Time Spent With Patient Time with patient: less than 30 minutes
[2022-12-17] MEDS: LACTATED RINGERS 1,000 ML 100 ML IV (07:30)
--- NOTE | 2022-12-17 07:50 | PM.PREOP ---
Pre-operative Note COVID-19 Criteria for continued procedure: Non-surgical alternatives not available or appropriate per current SOC Interval Note History & Physical reviewed/Exam performed by Physician: Yes Changes to H&P: No H&P completed within 30 days and has changed as indicated here:: 12/17/22
--- NOTE | 2022-12-17 08:23 | PM.GYNOP.1 ---
Operative Date/Time/Diagnoses Date of procedure: 12/17/22 Time of procedure: 08:24 Pre-op diagnosis: Missed at 7+6 weeks Post-op diagnosis: same Procedure & Clinicians Procedure: Procedures Operation Date: 12/17/22 07:45 Actual Procedure Side Surgeon p Suction Dilation and Curettage Roberta Booker MD Indications: Missed at 7+6 weeks gestation Surgeon: Roberta Booker Anesthesia Type: General (LMA) Operative Notes Findings: 8 week size anteverted uterus Large amount of POC Closure Type: not applicable Specimen(s): products of conception Applied: catheter (in/out) Estimated blood loss (mL): 100 Blood products transfused: none Procedure in detail: Informed consent was obtained. The patient was taken to the operating room and placed in the dorsal supine position. After LMA general anesthesia was obtained, she was placed in the dorsal lithotomy position and prepped and draped in the usual sterile fashion. A time out was performed. A bivalve speculum was placed into the vagina. A single-tooth tenaculum was placed on the anterior lip of the cervix. The cervical os was dilated to the #9 [place] dilator. The #8 curved plastic curette passed easily into the uterus. Several passes with suction revealed fluid and tissue. The placenta was stuck to the end of the catheter. This was removed. Several more passes with suction revealed tissue and blood. The last 2 passes with suction revealed blood only. The curette was removed from the uterus. The single-tooth tenaculum was removed from the anterior lip of the cervix. The bivalve speculum was removed from the vagina. Sponge, lap and instrument counts were correct x 2. The patient tolerated the procedure well and was taken to PACU in stable condition. Complications: none Post-operative Condition: stable Disposition: PACU Plan for aftercare: Home after recovery
[2022-12-17] MEDS: LACTATED RINGERS 1,000 ML 999 ML IV (09:05)
== END 2022-12-17 09:37 | disposition home or self-care (01) ==
PROVIDERS: Family Provider Family Medicine; PCP Family Medicine; Referring Provider Obstetrics & Gynecology; Visit Provider Obstetrics & Gynecology
PROC: (CPT 58120; principal; 2022-12-17 07:45)
DX: O02.1 Missed abortion (principal); Z3A.01 Less than 8 weeks gestation of pregnancy
CPT/HCPCS: 59820; J1100; J1885; J2250; J2405; J2704; J3010

== ENCOUNTER → 2023-09-22 15:44 | Outpatient (CLI) | payer OTHER, SELFPAY ==
[2023-09-22 16:22] LABS: Add Manual Diff / Slide Review NO; Basophils Absolute Auto 0 /uL (0-100); Basophils Percent Auto 0.3 % (0-2); Eosinophils Absolute Auto 100 /uL (0-450); Eosinophils Percent Auto 1.4 % (2-4); Hematocrit 36.6 % (36-46); Hemoglobin 12.4 g/dL (12.0-16.0); Lymphocytes Absolute Auto 1800 /uL (1100-4500); Lymphocytes Percent Auto 22.9 % (25-40); Mean Corpuscular HGB Conc 33.8 % (30-36); Mean Corpuscular Hemoglobin 30.8 PG (26-34); Mean Corpuscular Volume 91.1 fL (80-100); Monocytes Absolute Auto 700 /uL (0-900); Monocytes Percent Auto 9.3 % (3-14); Neutrophils Absolute Auto 5300 /uL (1500-7000); Neutrophils Percent Auto 66.1 % (50-75); Platelet Count 274 X10^3/uL (150-400); Red Blood Cell Count 4.02 X10^6/uL (4.0-5.2); Red Cell Distribution Width 13.8 % (11.6-14.8)
[2023-09-22 17:00] LABS: Hemoglobin A1C% w Est Avg Glu 4.9 % (4.0-6.0)
[2023-09-22 22:20] LABS: Urine N gonorrhoeae NOT DETECTED
[2023-09-22 22:23] LABS: Urine Chlamydia NOT DETECTED
[2023-09-24 05:39] LABS: RPR Screen Non Reactive (Non Reactive)
[2023-09-24 08:55] LABS: Varicella IgG Antibody 616 index (Immune >165)
[2023-09-24 19:44] LABS: Hepatitis B Surface Antigen NEGATIVE s/c (NEGATIVE)
[2023-09-24 20:39] LABS: HIV 1 & 2 Ab/Ag 4th Gen Combo NEGATIVE (NEGATIVE); Hep C Virus Ab w/Reflex Quant NEGATIVE s/c (NEGATIVE)
[2023-09-24 20:40] LABS: Rubella Antibody IgG 14.5 IU/mL (>15)
== END ==
PROVIDERS: Family Provider Family Medicine; PCP Family Medicine; Referring Provider Specialist; Visit Provider Specialist
DX: O09.299 Supervision of pregnancy with other poor reproductive or obstetric history, unspecified trimester (principal); Z86.32 Personal history of gestational diabetes; Z3A.12 12 weeks gestation of pregnancy
CPT/HCPCS: 36415; 80055; 83036; 86787; 86803; 86850; 86900; 86901; 87086; 87389; 87491; 87591

== ENCOUNTER → 2023-11-06 11:28 | Outpatient (CLI) | payer OTHER, SELFPAY ==
[2023-11-11 00:11] LABS: AFP Value 45.4 ng/mL (.); Gest Age on Col Date 18.7 weeks (.); Insulin Dep Diabetes No (.); OSBR Risk 1IN 10000 (.); Results Report (.); Test Results *Screen Negative* (.)
== END ==
PROVIDERS: Family Provider Family Medicine; PCP Family Medicine; Referring Provider Obstetrics & Gynecology; Visit Provider Obstetrics & Gynecology
DX: Z34.82 Encounter for supervision of other normal pregnancy, second trimester (principal); Z3A.18 18 weeks gestation of pregnancy
CPT/HCPCS: 36415; 82105

== ENCOUNTER → 2024-01-04 14:33 | Outpatient (CLI) | payer OTHER, SELFPAY ==
[2024-01-04 15:11] LABS: Hematocrit 33.1 % (36-46); Hemoglobin 11.5 g/dL (12.0-16.0)
== END ==
PROVIDERS: Family Provider Family Medicine; PCP Family Medicine; Referring Provider Obstetrics & Gynecology; Visit Provider Obstetrics & Gynecology
DX: Z34.82 Encounter for supervision of other normal pregnancy, second trimester (principal); Z3A.26 26 weeks gestation of pregnancy
CPT/HCPCS: 36415; 85014; 85018

== ENCOUNTER → 2024-03-09 13:42 | Outpatient (CLI) | payer OTHER, SELFPAY ==
[2024-03-10 15:30] LABS: Strep Grp B PCR POS for Grp B Strep
== END ==
PROVIDERS: Family Provider Family Medicine; PCP Family Medicine; Visit Provider Specialist
DX: Z34.83 Encounter for supervision of other normal pregnancy, third trimester (principal); Z3A.36 36 weeks gestation of pregnancy
CPT/HCPCS: 87653

== ENCOUNTER 2024-03-29 20:51 | Inpatient (IN) | payer OTHER, SELFPAY ==
[2024-03-29] MEDS: miSOPROStoL 25 MCG TABLET PO (22:09)
[2024-03-29 22:17] LABS: Add Manual Diff / Slide Review NO; Basophils Absolute Auto 100 /uL (0-100); Eosinophils Absolute Auto 0 /uL (0-450); Eosinophils Percent Auto 0.1 % (2-4); Hematocrit 34.1 % (36-46); Hemoglobin 11.5 g/dL (12.0-16.0); Lymphocytes Absolute Auto 1200 /uL (1100-4500); Lymphocytes Percent Auto 16.6 % (25-40); Mean Corpuscular HGB Conc 33.8 % (30-36); Mean Corpuscular Hemoglobin 31.4 PG (26-34); Mean Corpuscular Volume 92.8 fL (80-100); Monocytes Absolute Auto 600 /uL (0-900); Neutrophils Absolute Auto 5200 /uL (1500-7000); Neutrophils Percent Auto 74.3 % (50-75); Platelet Count 189 X10^3/uL (150-400); Red Blood Cell Count 3.68 X10^6/uL (4.0-5.2); Red Cell Distribution Width 13.9 % (11.6-14.8); White Blood Cell Count 7.1 X10^3/uL (4.5-11.0)
[2024-03-29 22:29] VITALS: BP 116/80
[2024-03-30] MEDS: ZOLPIDEM 5 MG TABLET PO (02:03)
[2024-03-30] MEDS: miSOPROStoL 25 MCG TABLET PO (02:03)
--- NOTE | 2024-03-30 08:41 | P.HPOB_ITS ---
OB HPI Date/Time Date of admission: 03/29/24 Date Patient Seen: 03/30/24 Time Patient Seen: 08:41 History of Present Condition Chief complaint: observation of labor ANDREAS Calculator 2 Estimated Delivery Date Method Current WG Current Estimate 04/04/24 Ultrasound #1 39w 2d Estimated Gestational Age (weeks): 39+2 : 5 Para: 2 care: limited care, initiated at week # (12), number of visits (6) and pounds weight gain (17) Dating criteria OB: LMP confirmed by 1st trimester US Ultrasounds: normal 1st trimester US and normal mid trimester US Obstetrical complications: other (RPL) Medical complications OB: none Indications Indication for induction OB: other (AMA, RPL) Preadmission Labs Last OB Lab Results: 2 Blood Type A Positive 03/29/24 21:45 Antibody Screen Negative 03/29/24 21:45 Hct 34.1 % (36-46) L 03/29/24 21:45 Hgb 11.5 g/dL (12.0-16.0) L 03/29/24 21:45 Hep Bs Antigen Negative s/c (NEGATIVE) 09/22/23 15:53 Hepatitis C Antibody Negative s/c (NEGATIVE) 09/22/23 15:53 Rubella Antibody 14.5 IU/mL (>15) L 09/22/23 15:53 VZV IgG Antibody 616 index (Immune >165) 09/22/23 15:53 Hemoglobin A1c 4.9 % (4.0-6.0) 09/22/23 15:53 Group B Strep (PCR) Pos for grp b strep H 03/09/24 13:42 -: Chlamydia screen: negative, Gonorrhea screen: negative and Urine: negative -: PAP smear: Normal Genetic Screens: Cell-free DNA: Normal (normal female) and Alpha-fetoprotein: Normal External Labs -: Urine: negative Prior (ies) Past Pregnancies Del. Date GA/Weeks Labor Lgth Wt Sex Route Outcome Anesthesia Place Delv Breastfeed Preg Comp Name 07/14/17 39.4 18 7 lb 8 oz Male vaginal live - full term ep idural [place] Still going @HS as of 11/18/22 gestational diabetes [place] 04/14/19 7-8 spontaneous IH spontaneous 05/13/20 39.4 12 6 lb 13 oz Female vaginal live - full term IH still going as of 11/18/22 gestational diabetes Andrea [place] 12/16/22 7.6 spontaneous Delivery Date: 07/14/17 Last Updated by: Adele Smith R.N. *Induced due to GDM: Pitocin. *GBS + : Iv treatement given. Delivery Date: 04/14/19 Last Updated by: Adele Smith R.N. 10 weeks per Gestation : D&C needed due to hemorrhage Delivery Date: 05/13/20 Last Updated by: Ping Bernard RN diet controlled GDM Delivery Date: 12/16/22 Last Updated by: Ping Bernard RN Missed AB, needed D&C Evaluation Evaluation Baseline heart rate: 130 Variability: Moderate (11-25) monitor accelerations: Present Monitor Decelerations: Absent Contraction Frequency (minutes): 8 Uterine Contraction Intensity: Mild Status: Category l Dilation (cm): 2 Effacement (%): 80 Dilation: 1-2 cm Effacement: >/=80% station: -1 Position of cervix: posterior Consistency: soft Power score: 8 [facility] Medical History (Updated 11/08/23 @ 21:01 by Roberta Booker MD) History of recurrent miscarriages Headache Chicken pox (~1996) Glaucoma (~2014) Bilateral breast cysts Vaginal delivery (~05/13/20) Gestational diabetes mellitus (GDM) affecting second Migraines (~2014) UTI (urinary tract infection) (~2004) Anxiety (~2012) Left breast lump (~2018) Surgical History (Updated 12/20/22 @ 21:31 by Adriana Miller) Anesthesia [place] teeth extracted (~2015) S/P anterior cruciate ligament surgery (~2003) S/P dilatation and curettage (04/14/19) Family History (Updated 11/18/22 @ 11:12 by Ping Bernard RN) Mother Asthma Father Hypertension Skin cancer screening Family/Other Thyroid condition Grandfather Hypertension H/O heart artery stent Grandmother Thyroid condition Grandfather Dementia Grandmother Dementia Family/Other Thyroid condition Son Anaphylaxis Social History (System 01/11/20 @ 14:41 by Nusrat Ontiveros) marital status: number of children: 2 household members: spouse and children lives independently: Yes caregiver/support person: Yes housing: house pets and animals: Yes (1 dog) education level: master's degree occupational status: unemployed current occupational exposures/hazards: No special stacy needs: No travel history: over 6 months ago seatbelt use: always helmet use: Yes water heater temp set < 120 deg: Yes working smoke detector in home: Yes fire extinguisher in home: Yes carbon monox detector in home: Yes firearms in home: Yes firearms unloaded and locked: Yes do you feel safe at home: Yes Smoking Status: Never smoker second hand exposure: No alcohol intake: former substance use type: does not use during the past year weight has: remained stable well-balanced diet: daily or most days daily servings fruits/ve or more times/day caffeine: Yes (1 small cup coffee in AM) Type(s) of exercise: other Meds Home Medications and Allergies Home Medications Medication Instructions Recorded Confirmed Type [id number] 1 mg 1 tab PO DAILY 12/17/22 03/29/24 History tablet Allergies Allergy/AdvReac Type Severity Reaction Status Date / Time No Known Drug Allergies Allergy Verified 03/21/24 14:36 OB Exam Narrative Exam Narrative: Generally: Patient is sitting up in bed, no acute distress Lungs: Clear to auscultation bilaterally Cardiovascular: Regular rate and rhythm Fundal height: 38 cm Estimated weight: 7-1/2 lb Extremities: No edema Objective Labs 03/29/24 21:45 Labs: Laboratory Results - last 24 hr 03/29/24 21:45 WBC 7.1 RBC 3.68 L Hgb 11.5 L Hct 34.1 L MCV 92.8 MCH 31.4 MCHC 33.8 RDW 13.9 Plt Count 189 Neut % (Auto) 74.3 Lymph % (Auto) 16.6 L [place] % (Auto) 8.0 Eos % (Auto) 0.1 L Baso % (Auto) 1.0 Neut # (Auto) 5200 Lymph # (Auto) 1200 [place] # (Auto) 600 Eos # (Auto) 0 Baso # (Auto) 100 Blood Type A Positive Antibody Screen Negative Assessment and Plan Assessment and Plan Assessment and Plan narrative: Assessment: 38-year-old 5 para 2 at 39 2/7 weeks' gestation status post 2 doses of Cytotec for cervical ripening Advanced maternal age Recurrent loss GBS positive Plan: GBS antibiotic prophylaxis Pitocin per protocol 2 Epidural as necessary Artificial rupture of membranes when able Expected management to spontaneous vaginal delivery Time-Based Coding :: [TOTAL MINUTES] spent with patient and on the chart (including review of chart, obtaining history, exam, reviewing outside data, placing orders, documenting exam and treatment plan, and counseling patient) on [DATE].
[2024-03-30] MEDS: AMPICILLIN 2,000 MG in SODIUM CHLORIDE 0.9% 100 ML 200 MG IV (09:07)
[2024-03-30] MEDS: OXYTOCIN PREMIX 30 UNIT/500 ML PLAST..BAG IV ×2 (09:16→21:47)
[2024-03-30] MEDS: LACTATED RINGERS 1,000 ML 100 ML IV (09:20)
--- NOTE | 2024-03-30 12:11 | PM.OBPNLAB ---
Date/Time Date Patient Seen: 03/30/24 Time Patient Seen: 12:11 Pain Control Pain control: tolerating well Pelvic Exam Dilation (cm): 2 Effacement (%): 80 station: -1 Amniotic membrane status: Intact Contractions Pitocin rate (mU/min): 7 Contraction frequency (min): 4 Contraction duration (min): 1 Contraction pattern: Regular Status status: Category l Heart Rate Baseline: 125 Monitor Accelerations: Present Monitor Decelerations: Absent Monitor Variability: Moderate Assessment and Plan Assessment: induction ongoing Plan: continuous present management
[2024-03-30] MEDS: AMPICILLIN 1,000 MG in SODIUM CHLORIDE 0.9% 100 ML 200 MG IV ×3 (12:45→17:06)
--- NOTE | 2024-03-30 17:31 | P.PCN_ITS ---
[facility] Pre-procedure Procedure: Continuous Lumbar Epidural for L&D PMH/ROS narrative: at 39+2 here for induction of labor d/t hx of GDM, requesting MARYANN. PSH/Anesthesia history narrative: See pre-anesthesia eval. Exam narrative: See pre-anesthesia eval. ASA Class: II Labs: Hct 34.1 % (36-46) L 03/29/24 21:45 Plt Count 189 X10^3/uL (150-400) 03/29/24 21:45 Medications: Current Medications Generic Name Dose Route Start Last Admin Trade Name Freq PRN Reason Stop Dose Admin Calcium Carbonate 1,000 mg 03/29/24 21:12 Calcium Carbonate 500 Mg Tab PO Q4HR PRN Dyspepsia Carboprost Tromethamine 250 mcg 03/29/24 21:12 Carboprost 250 Mcg/Ml Ampul IM Q90M PRN Bleeding Diphenhydramine HCl 25 mg 03/30/24 17:28 Diphenhydramine 50 Mg/Ml Vial IV 03/31/24 17:28 Q3HR PRN PRURITUS Diphenhydramine HCl 25 mg 03/30/24 17:29 Diphenhydramine 50 Mg/Ml Vial IV Q10M PRN Pruritis Ephedrine Sulfate 10 mg 03/30/24 17:29 Ephedrine 50 Mg/Ml Vial IV Q5M PRN Blood pressure decrease more than 20% of baseline. Fentanyl 50 mcg 03/29/24 21:12 Fentanyl 100 Mcg/2 Ml Inj IV Q1H PRN Pain, Moderate (4-6) Oxytocin/Lactated Ringer's 30 unit in 500 mls @ 2 mls/hr 03/29/24 21:15 03/30/24 09:16 Oxytocin Premix IV 2 milliunit/min TITRATE SAMIA 2 mls/hr Administration Protocol 2 MILLIUNIT/MIN Lactated Ringer's 1,000 mls @ 100 mls/hr 03/29/24 21:15 03/30/24 09:20 Lactated Ringers IV 100 mls/hr CONT SAMIA Administration Ampicillin Sodium 1,000 mg/ 100 mls @ 200 mls/hr 03/29/24 21:15 03/30/24 17:06 Sodium Chloride IV 200 mls/hr Q4H SAMIA Administration Oxytocin/Lactated Ringer's 30 unit in 500 mls @ 200 mls/hr 03/29/24 21:12 Oxytocin Premix IV CONT PRN Bleeding Protocol Tranexamic Acid 1,000 mg/ 100 mls @ 600 mls/hr 03/29/24 21:12 Sodium Chloride IV NOW PRN Bleeding Lactated Ringer's 1,000 mls @ 100 mls/hr 03/30/24 17:15 Lactated Ringers IV CONT SAMIA FENT 2MCG/ML BUPIV 0.125% EPI 200 mcg in 100 mls @ 8 mls/hr 03/30/24 16:56 Fentanyl/Bupiv/Ns 2mcg/Ml - 0.125% EPIDURAL CONT SAMIA Lidocaine HCl 20 ml 03/29/24 21:12 Lidocaine 1% 20 Ml INJ INTRA-OP PRN Post Delivery Methylergonovine Maleate 0.2 mg 03/29/24 21:12 Methylergonovine 0.2 Mg/Ml Vial IM NOW PRN Bleeding Methylergonovine Maleate 0.2 mg 03/29/24 21:12 Methylergonovine 0.2 Mg Tablet PO Q6HR PRN Heavy Bleeding Mineral Oil 30 ml 03/29/24 21:12 Mineral Oil 30 Ml Udc TOP PRN PRN Version Misoprostol 25 mcg 03/29/24 21:15 03/30/24 02:03 Misoprostol 25 Mcg Tablet PO 25 mcg Q4H [facility] Administration Misoprostol 400 mcg 03/29/24 21:12 Misoprostol 200 Mcg Tablet SL NOW PRN Bleeding Misoprostol 800 mcg 03/29/24 21:12 Misoprostol 200 Mcg Tablet MT NOW PRN Bleeding Nalbuphine HCl 2.5 mg 03/30/24 17:29 Nalbuphine 20 Mg/Ml Ampul IV Q10M PRN Pruritis Naloxone HCl 0.2 mg 03/29/24 21:12 Naloxone 0.4 Mg/Ml Vial IV Q2MIN PRN Opiate Reversal Naloxone HCl 0.4 mg 03/30/24 17:28 Naloxone 0.4 Mg/Ml Vial IV Q2MIN PRN Opiate Reversal Ondansetron HCl 4 mg 03/29/24 21:12 Ondansetron 4 Mg/2 Ml Inj IV Q4HR PRN Nausea And Vomiting Ondansetron HCl 4 mg 03/30/24 21:00 Ondansetron 4 Mg/2 Ml Inj IV 03/31/24 01:01 Q4HR [facility] Oxytocin 10 unit 03/29/24 21:12 Oxytocin 10 Unit/Ml Vial IM NOW PRN Bleeding Zolpidem Tartrate 5 mg 03/30/24 01:52 03/30/24 02:03 Zolpidem 5 Mg Tablet PO 5 mg BEDTIME PRN Administration Sleep Allergies: Allergies Allergy/AdvReac Type Severity Reaction Status Date / Time No Known Drug Allergies Allergy Verified 03/21/24 14:36 Procedure Insertion date: 03/30/24 Insertion time: 16:55 Prep/Local: 1% lidocaine (5mL to L3/L4 interspace. Chlorhexadine used for skin prep.) Interspace: L3/L4 Patient position: sitting Needle: 18 gauge Hustead Loss of resistance with: saline JOSÉ MIGUEL at (cm): 6 Catheter placed at SKIN (cm): 12 Catheter in SPACE (cm): 6 Insertion: No CSF, No Blood, No Paresthesia with insertion, No Paresthesia with injection and No Test dose reaction Initial Medications TEST DOSE time: 16:56 Infusion INFUSION: 0.125% bupivacaine and with fentanyl 2 mcg/mL Initial rate (mL/hr): 8 Post-procedure Anesthesia date START: 03/30/24 Anesthesia time START: 16:47 Anesthesia date END: 03/30/24 Anesthesia time END: 20:42 Post-procedure Anesthesia Assessment: Yes CV function: HR/BP stable, Yes Resp function: RR/sat/airway adequate, Yes Post-op hydration adequate, Yes Pain control adequate, Yes Nausea & vomiting absent, Yes Temperature > 36 C and Yes Mental status appropriate
--- NOTE | 2024-03-30 18:05 | PM.OBPNLAB ---
Date/Time Date Patient Seen: 03/30/24 Time Patient Seen: 18:05 Pain Control Pain control: epidural Pelvic Exam Dilation (cm): 5 Effacement (%): 80 station: -1 (posterior) Amniotic membrane status: Intact Contractions Contractions on admission: none Monitor mode: External Pitocin rate (mU/min): 16 Contraction frequency (min): 3 Contraction duration (min): 1 Contraction pattern: Regular Contraction intensity: Strong/Firm Status status: Category l Heart Rate Baseline: 135 Monitor Accelerations: Present Monitor Decelerations: Absent Monitor Variability: Moderate Assessment and Plan Assessment: active labor Comments: AROM with clear amniotic fluid Expectant management to
[2024-03-30] MEDS: MINERAL OIL 30 ML UDC TOP (20:35)
--- NOTE | 2024-03-30 20:59 | P.PCNOB_ITS ---
Events: Labor Induction Labor & Delivery Delivery date: 03/30/24 Intrapartal Events: None Cervical ripening method: per misoprostal protocol Induction method: per pitocin protocol Delivery augmentation: rupture of membranes Delivery monitor: external FHT and external uterine Route of delivery: Episiotomy description: None L&D Laceration Description: Superficial (labial, not repaired) Quantitative Blood Loss: 300 Anesthesia Type: Epidural Complications: None Narrative: Patient complete and pushed at 32 minutes. At 20:42, a live female infant delivered spontaneously over an intact perineum in the CLAUDIA presentation. No nuchal cord. The remainder of the body delivered without difficulty and was placed on mom's abdomen. Pitocin given in the IVF's. After the cord stopped pulsing, the cord was double clamped and cut. Cord bloods were obtained. The placenta delivered intact with a 3 V cord at 20:51. Fundus was massaged to firm. Superficial lac noted on the labia, no repair needed. Apgars 9 at one minute and 9 at 5 minutes. BF. Mom and stable to recovery. Epidural analgesia. BW 8#1.8oz. Mom and infant stable to recovery. [place] Baby 1: Infant gender: Female Presentation: vertex Position: Left Occiput Anterior Placenta delivery description: Spontaneous Cord Vessel Description: 3 Vessels and Clamped/Cut (after the cord stopped pulsing) score (1 min): 9 score (5 min): 9 weight: 8 lb 1.8 oz Plan for aftercare: Routine care
[2024-03-30] MEDS: ACETAMINOPHEN 325 MG TABLET 650 MG PO (23:40)
[2024-03-30] MEDS: IBUPROFEN 600 MG TABLET PO (23:41)
[2024-03-30] MEDS: DERMOPLAST SPRAY 20% 60 ML 1 SPRAY TOP (23:42)
[2024-03-30] MEDS: WITCH HAZEL/GLYCERIN PADS 1 EACH TOP (23:42)
[2024-03-30] MEDS: LANOLIN OINT 7 GM 1 APPLIC TOP (23:42)
[2024-03-31] MEDS: IBUPROFEN 600 MG TABLET PO ×2 (06:16→14:49)
[2024-03-31] MEDS: ACETAMINOPHEN 325 MG TABLET 650 MG PO ×2 (06:16→14:49)
[2024-03-31 06:26] LABS: Hematocrit 31.6 % (36-46); Hemoglobin 10.8 g/dL (12.0-16.0)
[2024-03-31] MEDS: DOCUSATE 100 MG CAPSULE PO (09:49)
[2024-03-31 12:46] VITALS: BP 112/73; PULSE 79; RESP 17; TEMP 35.9
[2024-03-31 14:44] VITALS: BP 112/73; PULSE 79; RESP 17; TEMP 35.9
== END 2024-03-31 15:30 | disposition home or self-care (01) | DRG 807 ==
PROVIDERS: Admitting Provider Obstetrics & Gynecology; Family Provider Family Medicine; PCP Family Medicine; Referring Provider Obstetrics & Gynecology; Visit Provider Obstetrics & Gynecology
DX: O99.824 Streptococcus B carrier state complicating childbirth (principal); Z37.0 Single live birth; Z3A.39 39 weeks gestation of pregnancy
CPT/HCPCS: 36415; 59050; 59200; 59400; 85014; 85018; 85025; 86850; 86900; 86901; A9270; G0379; J0290; J2590